=== PATIENT | female | born 1960 | race American Indian/Alaskan Native ===

== ENCOUNTER 2016-12-10 22:45 | Emergency (ER) | payer MEDICAID ==
[2016-12-10 23:28] VITALS: BP 130/81
--- NOTE | 2016-12-11 00:44 | EDM.PDOC ---
ED HPI GENERAL MEDICAL PROBLEM - General Chief Complaint: General Stated Complaint: TOOTHACHE Time Seen by Provider: 12/11/16 00:36 Source of Information: Reports: Patient History Limitations: Reports: No Limitations - History of Present Illness INITIAL COMMENTS - FREE TEXT/NARRATIVE: dental pain for 2 weeks, no relief with tylenol, and ibuprofen, has not attempted to see dentist, reporting they are always full, or she didn't have a car. 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, Other Medication(s) Tooth/Teeth Pain Score (Numeric/FACES): 5 - Related Data Allergies Allergy/AdvReac Type Severity Reaction Status Date / Time codeine Allergy Rash Verified 12/10/16 23:09 tramadol Allergy Headache Verified 12/10/16 23:09 Home Meds: Home Meds Furosemide [Lasix] 20 mg PO DAILY 06/18/14 [History] Rosuvastatin [Crestor] 20 mg PO DAILY 06/18/14 [History] metFORMIN [Glucophage] 500 mg PO BID 06/18/14 [History] Albuterol [Ventolin HFA] 8 gm INH Q6H 04/20/16 [History] Aspirin [Low Dose Aspirin EC] 81 mg PO DAILY 04/20/16 [History] Budesonide [Pulmicort] 0.5 mg NEB BIDRT 04/20/16 [History] DULoxetine [Cymbalta] 60 mg PO DAILY 04/20/16 [History] Ipratropium/Albuterol Sulfate [Iprat-Albut 0.5-3(2.5) MG/3 ML] 3 ml IH QID PRN 04/20/16 [History] Telmisartan 80 mg PO DAILY 04/20/16 [History] amLODIPine [Norvasc] 5 mg PO DAILY 04/20/16 [History] Past Medical History HEENT History: Reports: None, Hard of Hearing Cardiovascular History: Reports: High Cholesterol, Hypertension Respiratory History: Reports: COPD Other Respiratory History: on home O2 @ 2L/[place] Gastrointestinal History: Reports: None Genitourinary History: Reports: None [employer] History: Reports: None Musculoskeletal History: Reports: Osteoarthritis Neurological History: Reports: None Psychiatric History: Reports: None Endocrine/Metabolic History: Reports: Diabetes, Type II Hematologic History: Reports: None Immunologic History: Reports: None Oncologic (Cancer) History: Reports: None Dermatologic History: Reports: None - Infectious Disease History Infectious Disease History: Reports: None - Past Surgical History Head Surgeries/Procedures: Reports: None Female Surgical History: Reports: Hysterectomy Other Female Surgeries/Procedures: jan 27, 2015 Musculoskeletal Surgical History: Reports: Arthroscopic Knee Social & Family History - Family History Family Medical History: Noncontributory - Tobacco Use Smoking Status *Q: Current Every Day Smoker Years of Tobacco use: 38 Packs/Tins Daily: 1 Used Tobacco, but Quit: No Second Hand Smoke Exposure: Yes - Caffeine Use Caffeine Use: Reports: Coffee, Soda - Recreational Drug Use Recreational Drug Use: No - Living Situation & Occupation Living situation: Reports: with Family Occupation: Unemployed ED ROS GENERAL - Review of Systems Review Of Systems: ROS reveals no pertinent complaints other than HPI. ED EXAM, GENERAL - Physical Exam Exam: See Below Exam Limited By: No Limitations General Appearance: Alert, No Apparent Distress, Obese Eye Exam: Bilateral Eye: EOMI Ears: Normal External Exam Nose: Normal Inspection Throat/Mouth: No: Other (poor dentation, absence of upper teeth, lower front heavy decay, broken, left lower gum swollen anterior and laterally mild left lymphadenopathy) Neck: Normal Inspection Respiratory/Chest: No Respiratory Distress Cardiovascular: Normal Peripheral Pulses GI/Abdominal: Normal Bowel Sounds Extremities: Normal Inspection Course - Vital Signs Last Recorded V/S: Last Vital Signs Temp 98.8 F 12/10/16 23:27 Pulse 88 12/10/16 23:27 Resp 20 12/10/16 23:27 BP 130/81 12/10/16 23:27 Pulse Ox 90 L 12/10/16 23:27 - Orders/Labs/Meds Meds: Medications Discontinued Medications Generic Name Dose Route Start Last Admin Trade Name Freq PRN Reason Stop Dose Admin Clindamycin HCl Confirm 12/11/16 00:49 Cleocin Administered 12/11/16 00:50 Dose 300 mg .ROUTE .STK-MED ONE Lidocaine HCl Confirm 12/11/16 00:49 Xylocaine 2% Viscous Administered 12/11/16 00:50 Dose 15 ml .ROUTE .STK-MED ONE Departure - Departure Time of Disposition: 00:45 Disposition: Home, Self-Care 01 Condition: Good Clinical Impression: Dental abscess, Dental caries - Discharge Information Instructions: Dental Abscess, [id number] Referrals: John Trujillo MD [Primary Care Provider] - Forms: ED Department Discharge Additional Instructions: continue alternating tylenol and ibuprofen avoid extreme temperature foods and liquids to teeth viscous lidocaine applied to area with qtip every 2-4 hours as needed for dental pain stop amoxicillin clindamycin 150mg take 2 tablets 4 times daily for one week Follow Up with dentist
[2016-12-11] MEDS ORDERED: Lidocaine 2% Viscous Solution 15 ML Cup ONE (00:49)
[2016-12-11] MEDS ORDERED: Clindamycin HCl 150 MG Cap PO ONE (00:49)
[2016-12-11] MEDS ORDERED: Lidocaine 2% Viscous Solution 15 ML Cup PO ONE (00:49)
[2016-12-11] MEDS ORDERED: Clindamycin HCl 150 MG Cap ONE (00:49)
== END 2016-12-11 00:58 | disposition home or self-care (01) ==
LOC: DL.ED 22:45
DX: K04.7 Periapical abscess without sinus (principal); K02.9 Dental caries, unspecified; I10 Essential (primary) hypertension; E78.00 Pure hypercholesterolemia, unspecified; J44.9 Chronic obstructive pulmonary disease, unspecified; M19.90 Unspecified osteoarthritis, unspecified site; F17.210 Nicotine dependence, cigarettes, uncomplicated; E11.9 Type 2 diabetes mellitus without complications; Z90.710 Acquired absence of both cervix and uterus; Z98.890 Other specified postprocedural states; Z79.899 Other long term (current) drug therapy; Z88.5 Allergy status to narcotic agent; Z79.82 Long term (current) use of aspirin; Z79.84 Long term (current) use of oral hypoglycemic drugs
CPT/HCPCS: 99282; A9270-GY

== ENCOUNTER 2018-07-06 16:05 | Emergency (ER) | payer MEDICARE, MEDICAID ==
[2018-07-06 16:54] VITALS: BP 146/94
--- NOTE | 2018-07-06 17:07 | CR ---
Clinical history: 57-year-old female with COPD, cough and shortness of breath Interpretation: Chronic abnormal shaggy perihilar bronchitic pattern appears relatively improved (better inspiration) than on 04 April 2018 exam. Generalized air trapping but no focal lobar pneumonia, new atelectasis or collapse. Normal cardiac silhouette without cephalization of flow, new signs of alveolar edema or dependent pleural fluid accumulation. No new lung mass or hilar lymphadenopathy. Mild kyphosis and hypertrophic arthritic spondylosis dorsal spine. No pneumothorax or free subdiaphragmatic air. CONCLUSION: Chronic bronchitic pattern. No lobar pneumonia or signs of heart failure.
[2018-07-06 17:17] LABS: ANION GAP 15.6; CHLORIDE,CL 95 mmol/L (101-111); SODIUM,NA 136 mmol/L (135-145)
[2018-07-06] MEDS ORDERED: Ketorolac 30 MG/ML SDV IM ONE (17:32)
--- NOTE | 2018-07-06 17:55 | EDM.PDOC ---
Scribed by Vidya Shelton 07/06/18 0448 for Gwendolyn Garza NP ED HPI GENERAL MEDICAL PROBLEM - General Chief Complaint: Respiratory Problem Stated Complaint: VOICE CRACKLY Time Seen by Provider: 07/06/18 16:32 Source of Information: Reports: Patient, RN, RN Notes Reviewed History Limitations: Reports: No Limitations - History of Present Illness INITIAL COMMENTS - FREE TEXT/NARRATIVE: Patient presents to ER with complaint of cold. She states she has had a cough for 1 week. She is coughing up yellow/green phlegm. She has shortness of breath which is normal for her. She also has nasal/sinus congestion. She has had no fever, chills, chest pains, nausea, vomiting or diarrhea. Onset Date: 06/29/18 Duration: Getting Worse Location: Reports: Chest Quality: Reports: Ache Severity: Moderate Improves with: Reports: None Worsens with: Reports: None Associated Symptoms: Reports: No Other Symptoms - Related Data Allergies Allergy/AdvReac Type Severity Reaction Status Date / Time codeine Allergy Rash Verified 04/04/18 12:16 tramadol Allergy Headache Verified 04/04/18 12:16 Home Meds: Home Meds Furosemide [Lasix] 20 mg PO DAILY 06/18/14 [History] Rosuvastatin [Crestor] 20 mg PO BEDTIME 06/18/14 [History] metFORMIN [Glucophage] 1,000 mg PO BID 06/18/14 [History] Albuterol [Ventolin HFA] 8 gm INH Q4H 04/20/16 [History] Aspirin [Low Dose Aspirin EC] 81 mg PO DAILY 04/20/16 [History] Telmisartan 80 mg PO DAILY 04/20/16 [History] amLODIPine [Norvasc] 5 mg PO DAILY 04/20/16 [History] Fluticasone/Salmeterol [Advair 500-50] 2 puff INH BID 04/04/18 [History] Gabapentin [Neurontin] 1 tab PO TID 04/04/18 [History] Tiotropium [Spiriva Handihaler] 1 puff INH DAILY 04/04/18 [History] oxyCODONE HCl/Acetaminophen [Percocet 10-325 mg Tablet] 1 tab PO TID 04/04/18 [ History] Past Medical History HEENT History: Reports: None, Hard of Hearing Cardiovascular History: Reports: High Cholesterol, Hypertension Respiratory History: Reports: COPD Other Respiratory History: on home O2 @ 2L/NC Gastrointestinal History: Reports: None Genitourinary History: Reports: None 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 Musculoskeletal History: Reports: Osteoarthritis Neurological History: Reports: None Psychiatric History: Reports: None Endocrine/Metabolic History: Reports: Diabetes, Type II Hematologic History: Reports: None Immunologic History: Reports: None Oncologic (Cancer) History: Reports: None Dermatologic History: Reports: None - Infectious Disease History Infectious Disease History: Reports: None - Past Surgical History Head Surgeries/Procedures: Reports: None Female Surgical History: Reports: Hysterectomy Other Female Surgeries/Procedures: jan 27, 2015 Musculoskeletal Surgical History: Reports: Arthroscopic Knee Social & Family History - Family History Family Medical History: Noncontributory - Caffeine Use Caffeine Use: Reports: Coffee, Soda - Living Situation & Occupation Living situation: Reports: with Family Occupation: Unemployed ED ROS GENERAL - Review of Systems Review Of Systems: ROS reveals no pertinent complaints other than HPI. ED EXAM, GENERAL - Physical Exam Exam: See Below Exam Limited By: No Limitations General Appearance: Alert, WD/WN, No Apparent Distress Eye Exam: Bilateral Eye: EOMI, Normal Inspection, PERRL Ears: Normal External Exam, Normal Canal, Hearing Grossly Normal, Normal TMs Nose: Normal Inspection, Normal Mucosa, No Blood Throat/Mouth: Other (voice is raspy) Head: Atraumatic, Normocephalic Neck: Normal Inspection, Supple, Non-Tender, Full Range of Motion Respiratory/Chest: Crackles (bilateral) Cardiovascular: Normal Peripheral Pulses, Regular Rate, Rhythm, No Edema, No Gallop, No JVD, No Murmur, No Rub GI/Abdominal: Normal Bowel Sounds, Soft, Non-Tender, No Organomegaly, No Distention, No Abnormal Bruit, No Mass (Female) Exam: Deferred Rectal (Female) Exam: Deferred Back Exam: Other (pain in back) Extremities: Normal Inspection, Normal Range of Motion, Non-Tender, Normal Capillary Refill, No Pedal Edema Neurological: Alert, Oriented, CN II-XII Intact, Normal Cognition, Normal Gait, Normal Reflexes, No Motor/Sensory Deficits Psychiatric: Normal Affect, Normal Mood Skin Exam: Warm, Dry, Intact, Normal Color, No Rash Lymphatic: No Adenopathy Course - Vital Signs Last Recorded V/S: Last Vital Signs Temp 36.8 C 07/06/18 16:20 Pulse 105 H 07/06/18 16:20 Resp 22 H 07/06/18 16:20 BP 146/94 H 07/06/18 16:20 Pulse Ox 88 L 07/06/18 16:20 - Orders/Labs/Meds Labs: Laboratory Tests 07/06/18 07/06/18 Range/Units 16:55 16:55 WBC 7.4 (5.0-10.0) 10^3/uL RBC 6.86 H (4.2-5.4) 10^6/uL Hgb 19.1 H D (12.0-16.0) g/dL Hct 61.3 H (37.0-47.0) % MCV 89.4 (80-100) fL MCH 27.8 (27.0-34.0) pg MCHC 31.2 L (33.0-35.0) g/dL Plt Count 141 L (150-450) 10^3/uL Neut % (Auto) 67.1 (42.2-75.2) % Lymph % (Auto) 21.6 (20.5-50.1) % Piute % (Auto) 7.3 (2-8) % Eos % (Auto) 3.7 H (1.0-3.0) % Baso % (Auto) 0.3 (0.0-1.0) % Sodium 136 (135-145) mmol/L Potassium 3.6 (3.6-5.0) mmol/L Chloride 95 L (101-111) mmol/L Carbon Dioxide 29.0 (21.0-31.0) mmol/L Anion Gap 15.6 BUN 8 (7-18) mg/dL Creatinine 0.6 (0.6-1.3) mg/dL Est Cr Clr Drug Dosing 83.51 mL/min Estimated GFR (MDRD) > 60 BUN/Creatinine Ratio 13.33 Glucose 152 H (74-105) mg/dL Calcium 9.5 (8.4-10.2) mg/dl Total Bilirubin 0.7 (0.2-1.0) mg/dL AST 18 (10-42) IU/L ALT 14 (10-60) IU/L Alkaline Phosphatase 67 (42-121) IU/L Total Protein 7.9 (6.7-8.2) g/dl Albumin 4.0 (3.2-5.5) g/dl Globulin 3.9 Albumin/Globulin Ratio 1.03 Meds: Medications Discontinued Medications Generic Name Dose Route Start Last Admin Trade Name Ziq PRN Reason Stop Dose Admin Ketorolac Tromethamine 30 mg 07/06/18 17:32 Toradol IM 07/06/18 17:33 ONETIME ONE - Radiology Interpretation Free Text/Narrative:: Chest x-ray: Chronic bronchitic pattern. No lobar pneumonia or signs of heart failure. See rad report. Departure - Departure Time of Disposition: 17:25 Disposition: Home, Self-Care 01 Condition: Fair Clinical Impression: Acute exacerbation of chronic obstructive pulmonary disease (COPD), Laryngitis - Discharge Information *PRESCRIPTION DRUG MONITORING PROGRAM REVIEWED*: No *COPY OF PRESCRIPTION DRUG MONITORING REPORT IN PATIENT HANNAH: No Instructions: Chronic Obstructive Pulmonary Disease Exacerbation, [id number] , Cough, Adult, [id number], Chronic Obstructive Pulmonary Disease, Easy-to- Read, Upper Respiratory Infection, Adult, [id number], Laryngitis, [id number] Forms: ED Department Discharge Additional Instructions: RX: Azithromycin, prednisone, tessalon perles Follow up with your primary care facility next week I have read and agree with the documentation that has been completed regarding this visit. By signing this record, I attest that the documentation was completed in my physical presence and is an accurate record of the encounter.
== END 2018-07-06 18:02 | disposition home or self-care (01) ==
LOC: DL.ED 16:05
DX: J44.1 Chronic obstructive pulmonary disease with (acute) exacerbation (principal); J04.0 Acute laryngitis; I10 Essential (primary) hypertension; E11.9 Type 2 diabetes mellitus without complications; E78.00 Pure hypercholesterolemia, unspecified; Z79.84 Long term (current) use of oral hypoglycemic drugs; Z79.899 Other long term (current) drug therapy; Z79.82 Long term (current) use of aspirin; Z88.5 Allergy status to narcotic agent; Z88.6 Allergy status to analgesic agent
CPT/HCPCS: 36415; 71046; 80053; 85025; 96372; 99283; J1885

== ENCOUNTER 2019-06-10 13:58 | Emergency (ER) | payer MEDICARE, MEDICAID ==
[2019-06-10] MEDS ORDERED: Succinylcholine 200 MG/10 ML MDV IV ONE (13:59)
[2019-06-10] MEDS ORDERED: Etomidate 2 MG/ML 20 ML SDV IVPUSH ONE (13:59)
[2019-06-10] MEDS ORDERED: Rocuronium 100 MG/10 ML MDV IV ONE (13:59)
[2019-06-10] MEDS ORDERED: Sodium Chloride 0.9% 10 ML Syringe FLUSH PRN (14:30)
[2019-06-10 15:18] LABS: ANION GAP 14.7; CHLORIDE,CL 94 mmol/L (101-111); SODIUM,NA 134 mmol/L (135-145)
[2019-06-10 15:25] VITALS: BP 130/67; PULSE 108
[2019-06-10 15:38] LABS: BASE EXCESS ARTERIAL 5 mmol/L ((-2)-(+3)); BICARBONATE,ARTERIAL 34.7 mmol/L (22-26); O2 DELIVERY DEVICE NASAL CANNULA; O2 SATURATION ARTERIAL 82 % (95-100); PO2 ARTERIAL 54 mmHg (70-100)
[2019-06-10 15:41] LABS: PCO2 ARTERIAL 70 mmHg (35-45)
[2019-06-10] MEDS ORDERED: Furosemide 40 MG/4 ML VIAL IVPUSH ONE (17:14)
[2019-06-10] MEDS ORDERED: LORazepam 2 MG/ML SDV IVPUSH ONE (17:31)
--- NOTE | 2019-06-10 18:32 | EDM.PDOC ---
<Garrett Banks - Last Filed: 06/10/19 19:16> ED HPI GENERAL MEDICAL PROBLEM - General Chief Complaint: Respiratory Problem Stated Complaint: AMBULANCE Time Seen by Provider: 06/10/19 14:20 - Related Data Allergies Allergy/AdvReac Type Severity Reaction Status Date / Time codeine Allergy Rash Verified 06/10/19 14:36 tramadol Allergy Headache Verified 06/10/19 14:36 Home Meds: Home Meds Furosemide [Lasix] 20 mg PO DAILY 06/18/14 [History] Rosuvastatin [Crestor] 20 mg PO BEDTIME 06/18/14 [History] metFORMIN [Glucophage] 1,000 mg PO BID 06/18/14 [History] Albuterol [Ventolin HFA] 8 gm INH Q4H 04/20/16 [History] Aspirin [Low Dose Aspirin EC] 81 mg PO DAILY 04/20/16 [History] Telmisartan 80 mg PO DAILY 04/20/16 [History] amLODIPine [Norvasc] 5 mg PO DAILY 04/20/16 [History] Fluticasone/Salmeterol [Advair 500-50] 2 puff INH BID 04/04/18 [History] Gabapentin [Neurontin] 1 tab PO TID 04/04/18 [History] Tiotropium [Spiriva Handihaler] 1 puff INH DAILY 04/04/18 [History] oxyCODONE HCl/Acetaminophen [Percocet 10-325 mg Tablet] 1 tab PO TID 04/04/18 [ History] ED ROS GENERAL - Review of Systems Review Of Systems: Comprehensive ROS is negative, except as noted in HPI. ED EXAM, GENERAL - Physical Exam Exam: See Below Exam Limited By: No Limitations General Appearance: Lethargic Ears: Hearing Grossly Normal Throat/Mouth: Normal Voice, No Airway Compromise Head: Atraumatic Neck: Non-Tender, Full Range of Motion Respiratory/Chest: Decreased Breath Sounds, Crackles, Rales, Rhonchi, Wheezing, Other (laboured respiration) Cardiovascular: Regular Rate, Rhythm GI/Abdominal: Soft, Non-Tender Neurological: Confused Psychiatric: Flat Affect Skin Exam: Warm, Dry, Normal Color Lymphatic: No Adenopathy Course - Vital Signs Last Recorded V/S: Last Vital Signs Temp 98.6 F 06/10/19 16:00 Pulse 108 H 06/10/19 15:24 Resp 18 06/10/19 15:24 BP 130/67 06/10/19 15:24 Pulse Ox 88 L 06/10/19 15:24 - Orders/Labs/Meds Orders: Active Orders 24 hr Category Date Time Status Patient Status [ADT] Routine ADT 06/10/19 18:44 Active Cardiac Monitoring [RC] CONTINUOUS Care 06/10/19 18:46 Active EKG 12 Lead [EKG Documentation Completion] [RC] URGENT Care 06/10/19 14:33 Active Intake and Output [RC] QSHIFT Care 06/10/19 18:46 Active Oxygen Therapy [RC] PRN Care 06/10/19 18:44 Active Peripheral IV Care [RC] . DIRECTED Care 06/10/19 14:32 Active Pulse Oximetry [RC] CONTINUOUS Care 06/10/19 14:30 Active RT Aerosol Therapy [RC] ASDIRECTED Care 06/10/19 18:48 Active RT Aerosol Therapy [RC] ASDIRECTED Care 06/10/19 20:08 Active Up ad Shauna [RC] ASDIRECTED Care 06/10/19 18:43 Active VTE/DVT Education [RC] PER UNIT ROUTINE Care 06/10/19 18:44 Active Vital Signs [RC] Q4H Care 06/10/19 18:44 Active CULTURE BLOOD [BC] Stat Lab 06/10/19 14:43 Received CULTURE BLOOD [BC] Stat Lab 06/10/19 14:43 Results Blood Culture x2 Reflex Set [OM.PC] Stat Oth 06/10/19 14:33 Ordered Peripheral IV Insertion Adult [OM.PC] Urgent Oth 06/10/19 14:30 Ordered Resuscitation Status Routine Resus Stat 06/10/19 18:43 Ordered Labs: Laboratory Tests 06/10/19 06/10/19 06/10/19 Range/Units 14:43 14:43 14:43 WBC 10.2 H (5.0-10.0) 10^3/uL RBC 6.23 H (4.2-5.4) 10^6/uL Hgb 18.4 H (12.0-16.0) g/dL Hct 58.5 H (37.0-47.0) % MCV 93.9 (80-100) fL MCH 29.5 (27.0-34.0) pg MCHC 31.5 L (33.0-35.0) g/dL Plt Count 131 L (150-450) 10^3/uL Neut % (Auto) 79.5 H (42.2-75.2) % Lymph % (Auto) 12.4 L (20.5-50.1) % [place] % (Auto) 6.1 (2-8) % Eos % (Auto) 1.8 (1.0-3.0) % Baso % (Auto) 0.2 (0.0-1.0) % D-Dimer, Quantitative < 100 (0-400) ng/mL ABG pH (7.35-7.45) ABG pCO2 (35-45) mmHg ABG pO2 (70-100) mmHg ABG HCO3 (22-26) mmol/L ABG O2 Saturation (95-100) % ABG Base Excess ((-2)-(+3)) mmol/L Jayant Test O2 Delivery Device Sodium 134 L (135-145) mmol/L Potassium 5.7 H D (3.6-5.0) mmol/L Chloride 94 L (101-111) mmol/L Carbon Dioxide 31.0 (21.0-31.0) mmol/L Anion Gap 14.7 BUN 22 H (7-18) mg/dL Creatinine 0.9 (0.6-1.3) mg/dL Est Cr Clr Drug Dosing TNP Estimated GFR (MDRD) > 60 BUN/Creatinine Ratio 24.44 Glucose 120 H (74-105) mg/dL Lactic Acid (0.5-2.0) mmol/L Calcium 8.8 (8.4-10.2) mg/dl Total Bilirubin 1.2 H (0.2-1.0) mg/dL AST 12 (10-42) IU/L ALT 9 L (10-60) IU/L Alkaline Phosphatase 62 (42-121) IU/L Ammonia (11-35) umol/L Troponin I < 0.02 (0.00-0.02) ng/ml B-Natriuretic Peptide 13 (0-100) pg/ml Total Protein 7.7 (6.7-8.2) g/dl Albumin 4.3 (3.2-5.5) g/dl Globulin 3.4 Albumin/Globulin Ratio 1.26 06/10/19 06/10/19 06/10/19 Range/Units 14:43 14:43 15:35 WBC (5.0-10.0) 10^3/uL RBC (4.2-5.4) 10^6/uL Hgb (12.0-16.0) g/dL Hct (37.0-47.0) % MCV (80-100) fL MCH (27.0-34.0) pg MCHC (33.0-35.0) g/dL Plt Count (150-450) 10^3/uL Neut % (Auto) (42.2-75.2) % Lymph % (Auto) (20.5-50.1) % [place] % (Auto) (2-8) % Eos % (Auto) (1.0-3.0) % Baso % (Auto) (0.0-1.0) % D-Dimer, Quantitative (0-400) ng/mL ABG pH 7.32 L (7.35-7.45) ABG pCO2 70 H* (35-45) mmHg ABG pO2 54 L (70-100) mmHg ABG HCO3 34.7 H (22-26) mmol/L ABG O2 Saturation 82 L (95-100) % ABG Base Excess 5 H ((-2)-(+3)) mmol/L Jayant Test O2 Delivery Device Nasal cannula Sodium (135-145) mmol/L Potassium (3.6-5.0) mmol/L Chloride (101-111) mmol/L Carbon Dioxide (21.0-31.0) mmol/L Anion Gap BUN (7-18) mg/dL Creatinine (0.6-1.3) mg/dL Est Cr Clr Drug Dosing Estimated GFR (MDRD) BUN/Creatinine Ratio Glucose (74-105) mg/dL Lactic Acid 1.2 (0.5-2.0) mmol/L Calcium (8.4-10.2) mg/dl Total Bilirubin (0.2-1.0) mg/dL AST (10-42) IU/L ALT (10-60) IU/L Alkaline Phosphatase (42-121) IU/L Ammonia 35 (11-35) umol/L Troponin I (0.00-0.02) ng/ml B-Natriuretic Peptide (0-100) pg/ml Total Protein (6.7-8.2) g/dl Albumin (3.2-5.5) g/dl Globulin Albumin/Globulin Ratio 06/10/19 Range/Units 19:39 WBC (5.0-10.0) 10^3/uL RBC (4.2-5.4) 10^6/uL Hgb (12.0-16.0) g/dL Hct (37.0-47.0) % MCV (80-100) fL MCH (27.0-34.0) pg MCHC (33.0-35.0) g/dL Plt Count (150-450) 10^3/uL Neut % (Auto) (42.2-75.2) % Lymph % (Auto) (20.5-50.1) % [place] % (Auto) (2-8) % Eos % (Auto) (1.0-3.0) % Baso % (Auto) (0.0-1.0) % D-Dimer, Quantitative (0-400) ng/mL ABG pH 7.25 L (7.35-7.45) ABG pCO2 84 H* (35-45) mmHg ABG pO2 80 (70-100) mmHg ABG HCO3 35.4 H (22-26) mmol/L ABG O2 Saturation 95 (95-100) % ABG Base Excess 4 H ((-2)-(+3)) mmol/L Jayant Test pos O2 Delivery Device Ventilator Sodium (135-145) mmol/L Potassium (3.6-5.0) mmol/L Chloride (101-111) mmol/L Carbon Dioxide (21.0-31.0) mmol/L Anion Gap BUN (7-18) mg/dL Creatinine (0.6-1.3) mg/dL Est Cr Clr Drug Dosing Estimated GFR (MDRD) BUN/Creatinine Ratio Glucose (74-105) mg/dL Lactic Acid (0.5-2.0) mmol/L Calcium (8.4-10.2) mg/dl Total Bilirubin (0.2-1.0) mg/dL AST (10-42) IU/L ALT (10-60) IU/L Alkaline Phosphatase (42-121) IU/L Ammonia (11-35) umol/L Troponin I (0.00-0.02) ng/ml B-Natriuretic Peptide (0-100) pg/ml Total Protein (6.7-8.2) g/dl Albumin (3.2-5.5) g/dl Globulin Albumin/Globulin Ratio Meds: Medications Discontinued Medications Generic Name Dose Route Start Last Admin Trade Name Freq PRN Reason Stop Dose Admin Acetaminophen 650 mg 06/10/19 18:43 Tylenol PO Q4H PRN Pain (Mild 1-3)/fever Albuterol 2.5 mg 06/10/19 18:43 Proventil Neb Soln NEB Q2H PRN shortness of breath/wheezing Albuterol Confirm 06/10/19 19:51 Proventil Neb Soln Administered 06/10/19 19:52 Dose 20 mg .ROUTE .STK-MED ONE Albuterol 20 mg 06/10/19 20:07 06/10/19 20:36 Proventil Neb Soln NEB 06/10/19 20:08 20 mg ONETIME ONE Administration Albuterol/Ipratropium 3 ml 06/10/19 18:45 Duoneb 3.0-0.5 Mg/3 Ml NEB Q4H ENDY Furosemide 40 mg 06/10/19 17:14 06/10/19 17:35 Lasix IVPUSH 06/10/19 17:15 40 mg NOW ONE Administration Heparin Sodium (Porcine) 5,000 units 06/10/19 22:00 Heparin Sodium SUBCUT Q8HR ENDY Azithromycin 500 mg/ Sodium 250 mls @ 250 mls/hr 06/10/19 20:00 Chloride IV Q24H ENDY Ceftriaxone Sodium 1 gm/ 50 mls @ 50 mls/hr 06/10/19 19:00 Sodium Chloride IV Q24H ENDY Lorazepam 1 mg 06/10/19 17:31 06/10/19 17:36 Ativan IVPUSH 06/10/19 17:32 1 mg ONETIME ONE Administration Ondansetron HCl 4 mg 06/10/19 18:43 Zofran IVPUSH Q6H PRN Nausea/Vomiting Sodium Chloride 10 ml 06/10/19 14:30 06/10/19 16:05 Saline Flush FLUSH 10 ml ASDIRECTED PRN Administration Keep Vein Open - Re-Assessments/Exams Free Text/Narrative Re-Assessment/Exam: 06/10/19 19:[address] Rebolledo @ [facility] who kindly accepted pt. Departure - Departure Disposition: DC/Tfer to [facility] 02 Clinical Impression: Acute exacerbation of chronic obstructive pulmonary disease (COPD), Hyperkalemia, Pulmonary edema with congestive heart failure, Respiratory failure requiring intubation, Acute respiratory failure with hypoxia and hypercarbia Congestive heart failure Qualifiers: Heart failure type: combined systolic and diastolic Heart failure chronicity: chronic Qualified Code(s): I50.42 - Chronic combined systolic (congestive) and diastolic (congestive) heart failure - Discharge Information Referrals: PCP,Unobtain [Primary Care Provider] - Forms: Interfacility Transfer [facility]ZA Sepsis Event Note - Focused Exam Date Exam was Performed: 06/10/19 Time Exam was Performed: 19:16 - My Orders Last 24 Hours: My Active Orders 06/10/19 14:30 Pulse Oximetry [RC] CONTINUOUS Peripheral IV Insertion Adult [OM.PC] Urgent 06/10/19 14:32 Peripheral IV Care [RC] . DIRECTED 06/10/19 14:33 EKG 12 Lead [EKG Documentation Completion] [RC] URGENT Blood Culture x2 Reflex Set [OM.PC] Stat 06/10/19 14:43 CULTURE BLOOD [BC] Stat CULTURE BLOOD [BC] Stat - Assessment/Plan Last 24 Hours: My Active Orders 06/10/19 14:30 Pulse Oximetry [RC] CONTINUOUS Peripheral IV Insertion Adult [OM.PC] Urgent 06/10/19 14:32 Peripheral IV Care [RC] . DIRECTED 06/10/19 14:33 EKG 12 Lead [EKG Documentation Completion] [RC] URGENT Blood Culture x2 Reflex Set [OM.PC] Stat 06/10/19 14:43 CULTURE BLOOD [BC] Stat CULTURE BLOOD [BC] Stat [facility] Last Filed: 06/11/19 08:44> ED HPI GENERAL MEDICAL PROBLEM - General Source of Information: Reports: EMS, RN History Limitations: Reports: Altered Mental Status - History of Present Illness INITIAL COMMENTS - FREE TEXT/NARRATIVE: 58 year female who presents to the ER with EMS for sats of 63% on 3L NC. Patient was confused and a poor historian. Patient was given a duoneb enroute to the ER and her oxygen saturation was 72%. She is on 90 % on 2L NC in the ER. She denies any fever, N/V, chest pain at this time. Cough is productive with yellow sputum noted. Patient smokes about 2.5 packs/day. Past Medical History HEENT History: Reports: None, Hard of Hearing Cardiovascular History: Reports: High Cholesterol, Hypertension Respiratory History: Reports: COPD Other Respiratory History: on home O2 @ 2L/NC Gastrointestinal History: Reports: None Genitourinary History: Reports: None SENIOR EXAMINER History: Reports: None Musculoskeletal History: Reports: Osteoarthritis Neurological History: Reports: None Psychiatric History: Reports: None Endocrine/Metabolic History: Reports: Diabetes, Type II Hematologic History: Reports: None Immunologic History: Reports: None Oncologic (Cancer) History: Reports: None Dermatologic History: Reports: None - Infectious Disease History Infectious Disease History: Reports: None - Past Surgical History Head Surgeries/Procedures: Reports: None Female Surgical History: Reports: Hysterectomy Other Female Surgeries/Procedures: jan 27, 2015 Musculoskeletal Surgical History: Reports: Arthroscopic Knee Social & Family History - Family History Family Medical History: Noncontributory - Tobacco Use Smoking Status *Q: Current Every Day Smoker Years of Tobacco use: 40 Packs/Tins Daily: 2.5 - Caffeine Use Caffeine Use: Reports: Coffee, Soda - Recreational Drug Use Recreational Drug Use: No - Living Situation & Occupation Living situation: Reports: with Family Occupation: Unemployed ED ROS GENERAL - Review of Systems Review Of Systems: Comprehensive ROS is negative, except as noted in HPI. ED EXAM, GENERAL - Physical Exam Exam: See Below Exam Limited By: Altered Mental Status Eye Exam: Bilateral Eye: Normal Inspection Ears: Normal External Exam, Normal Canal, Hearing Grossly Normal, Normal TMs Nose: Normal Inspection, Normal Mucosa, No Blood Throat/Mouth: Normal Oropharynx, Normal Voice, No Airway Compromise Head: Atraumatic Neck: Normal Inspection, Non-Tender, Full Range of Motion Respiratory/Chest: Decreased Breath Sounds, Other Cardiovascular: Regular Rate, Rhythm, Other (1 + non pitting to BLE) GI/Abdominal: Soft, Non-Tender Extremities: Normal Range of Motion, Non-Tender Neurological: Confused Psychiatric: Anxious, Flat Affect Skin Exam: Dry, Intact Lymphatic: No Adenopathy Course - Radiology Interpretation Free Text/Narrative:: PROCEDURE INFORMATION: Exam: XR Chest, 2 Views Exam date and time: 06/10/2019 2:46 PM Age: 58 years old Clinical indication: Shortness of breath; Additional info: SOB TECHNIQUE: Imaging protocol: XR of the chest Views: 2 views. COMPARISON: CR Chest 2V 07/06/2018 4:57 PM FINDINGS: Lungs: There is moderate nonspecific prominence of the pulmonary vasculature. There is prominence of the interstitial markings diffusely in both lung bases. Pleural space: There are no pleural effusions present. Heart/Mediastinum: The heart demonstrates moderate diffuse enlargement. Bones/joints: Unremarkable IMPRESSION: Cardiomegaly and pulmonary vascular prominence consistent with volume overload or congestive heart failure. Thank you for allowing us to participate in the care of your patient. - Re-Assessments/Exams Free Text/Narrative Re-Assessment/Exam: Reviewed labs, chest xray and EKG results with patient's family. Lasix 40 mg administered. Care of patient was discussed with Hospitalist continuous washer operator Dr. Quintero who was accepted patient for inpatient admission. Patient was very anxious and was constantly pulling off the BiPAP. She was also requesting discharge. It was noted that patient will desat into the 80's once she removed the BIPAP or oxygen by nasal cannula. . Care of this patient was transferred over to Dr. Banks, provider on oncoming shift. Departure - Departure Time of Disposition: 18:16 Condition: Poor Sepsis Event Note - Evaluation Sepsis Screening Result: Possible Severe Sepsis Risk - Focused Exam Date Exam was Performed: 06/11/19 Time Exam was Performed: 08:29
[2019-06-10] MEDS ORDERED: Albuterol 0.083% 2.5 MG/3 ML Neb Soln NEB PRN (18:43)
[2019-06-10] MEDS ORDERED: Ondansetron 4 MG/2 ML SDV IVPUSH PRN (18:43)
[2019-06-10] MEDS ORDERED: Acetaminophen 325 MG Tab PO PRN (18:43)
[2019-06-10] MEDS ORDERED: Albuterol/Ipratropium 3.0-0.5 MG/3 ML Neb Soln NEB SCH (18:45)
[2019-06-10] MEDS ORDERED: cefTRIAXone 1 GM in Sodium Chloride 0.9% 50 ML IV SCH (19:00)
[2019-06-10] MEDS ORDERED: Albuterol 0.083% 2.5 MG/3 ML Neb Soln ONE (19:51)
[2019-06-10] MEDS ORDERED: Azithromycin 500 MG in Sodium Chloride 0.9% 250 ML IV SCH (20:00)
[2019-06-10] MEDS ORDERED: Albuterol 0.083% 2.5 MG/3 ML Neb Soln NEB ONE (20:07)
[2019-06-10 20:23] LABS: BASE EXCESS ARTERIAL 4 mmol/L ((-2)-(+3)); BICARBONATE,ARTERIAL 35.4 mmol/L (22-26); O2 DELIVERY DEVICE VENTILATOR; O2 SATURATION ARTERIAL 95 % (95-100); PO2 ARTERIAL 80 mmHg (70-100)
[2019-06-10 20:30] LABS: PCO2 ARTERIAL 84 mmHg (35-45)
[2019-06-10 20:31] LABS: ALLEN TEST pos
[2019-06-10] MEDS ORDERED: Heparin Sodium 5,000 Units/ML Vial SUBCUT SCH (22:00)
== END 2019-06-10 20:22 ==
LOC: DL.ED 13:58 → DL.MS 18:44 → UNDOADMIN 18:44
DX: I11.0 Hypertensive heart disease with heart failure (principal); I50.9 Heart failure, unspecified; E87.5 Hyperkalemia; J96.91 Respiratory failure, unspecified with hypoxia; J96.92 Respiratory failure, unspecified with hypercapnia; J44.1 Chronic obstructive pulmonary disease with (acute) exacerbation; E11.9 Type 2 diabetes mellitus without complications; F17.210 Nicotine dependence, cigarettes, uncomplicated
CPT/HCPCS: 31500; 36415; 36600; 51702; 71045; 71046; 80053; 82140; 82803; 83605; 83880; 84484; 85025; 85379; 87040; 87804; 93005; 94644; 96374; 96375; 99285; J0330; J1940; J2060; J3490; J7613-GY

== ENCOUNTER 2020-09-29 12:04 | Emergency (ER) | payer MEDICAID, MEDICARE ==
[2020-09-29] MEDS ORDERED: Albuterol/Ipratropium 3.0-0.5 MG/3 ML Neb Soln NEB ONE (12:51)
--- NOTE | 2020-09-29 12:54 | EDM.PDOC ---
ED HPI GENERAL MEDICAL PROBLEM - General Chief Complaint: Respiratory Problem Stated Complaint: BY AMBULANCE Time Seen by Provider: 09/29/20 12:40 Source of Information: Reports: Patient, EMS, EMS Notes Reviewed, RN, RN Notes Reviewed History Limitations: Reports: No Limitations - History of Present Illness INITIAL COMMENTS - FREE TEXT/NARRATIVE: Kadie is a 59 y/o female with a history of DM II, CHF, HTN, and COPD on 3L of O2 at baseline who presents to the ED via [facility] with complaints of possible hallucination last night. The patient states she was speaking with her sister last night and her sister felt as if she was "..seeing things." The patient denies recent illness, fever, shaking chills, vision changes, sore throat, chest pain, palpitations, nausea, vomiting, or diarrhea. She does attest to a chronic dry cough which has not worsened in severity or frequency. She has not required an increase in oxygen requirements or rescue inhalers. She states she feels alert and oriented. The patient attests to smoking 1/2 pack of cigarettes per day; she denies alcohol or recreational drug use. - Related Data Allergies Allergy/AdvReac Type Severity Reaction Status Date / Time codeine Allergy Rash Verified 09/29/20 13:06 tramadol Allergy Headache Verified 09/29/20 13:06 Home Meds: Home Meds Furosemide [Lasix] 20 mg PO DAILY 06/18/14 [History] Rosuvastatin [Crestor] 20 mg PO BEDTIME 06/18/14 [History] metFORMIN [Glucophage] 1,000 mg PO BID 06/18/14 [History] Albuterol [Ventolin HFA] 8 gm INH Q4H 04/20/16 [History] Aspirin [Low Dose Aspirin EC] 81 mg PO DAILY 04/20/16 [History] Telmisartan 80 mg PO DAILY 04/20/16 [History] amLODIPine [Norvasc] 5 mg PO DAILY 04/20/16 [History] Fluticasone/Salmeterol [Advair 500-50] 2 puff INH BID 04/04/18 [History] Gabapentin [Neurontin] 1 tab PO TID 04/04/18 [History] Tiotropium [Spiriva Handihaler] 1 puff INH DAILY 04/04/18 [History] oxyCODONE HCl/Acetaminophen [Percocet 10-325 mg Tablet] 1 tab PO TID 04/04/18 [History] Past Medical History - Past Health History Medical/Surgical History: Denies Medical/Surgical History HEENT History: Reports: Hard of Hearing Cardiovascular History: Reports: High Cholesterol, Hypertension Respiratory History: Reports: COPD Other Respiratory History: on home O2 @ 2L/NC Gastrointestinal History: Reports: None Genitourinary History: Reports: None 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 Musculoskeletal History: Reports: Osteoarthritis Neurological History: Reports: None Psychiatric History: Reports: None Endocrine/Metabolic History: Reports: Diabetes, Type II Hematologic History: Reports: None Immunologic History: Reports: None Oncologic (Cancer) History: Reports: None Dermatologic History: Reports: None - Infectious Disease History Infectious Disease History: Reports: None - Past Surgical History Head Surgeries/Procedures: Reports: None Female Surgical History: Reports: Hysterectomy Other Female Surgeries/Procedures: jan 27, 2015 Musculoskeletal Surgical History: Reports: Arthroscopic Knee Other Musculoskeletal Surgeries/Procedures:: bilateral Social & Family History - Family History Family Medical History: No Pertinent Family History - Tobacco Use Tobacco Use Status *Q: Current Every Day Tobacco User Years of Tobacco use: 40 Packs/Tins Daily: 1 - Caffeine Use Caffeine Use: Reports: None, Coffee, Energy Drinks, Soda, Tea, Other - Recreational Drug Use Recreational Drug Use: No - Living Situation & Occupation Living situation: Reports: with Family Occupation: Unemployed ED ROS GENERAL - Review of Systems Review Of Systems: Comprehensive ROS is negative, except as noted in HPI. ED EXAM, GENERAL - Physical Exam Exam: See Below Exam Limited By: No Limitations General Appearance: Alert, No Apparent Distress Eye Exam: Bilateral Eye: EOMI, Normal Inspection, PERRL (3mm) Ears: Normal External Exam, Normal Canal, Hearing Grossly Normal. 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 No: Crackles, Rales, Rhonchi, Stridor Cardiovascular: Normal Peripheral Pulses, Regular Rate, Rhythm, No Edema, No Gallop, No JVD, No Murmur, No Rub, Tachycardia Peripheral Pulses: 2+: Radial (L), Radial (R) GI/Abdominal: Normal Bowel Sounds, Non-Tender, No Distention, No Mass, Pelvis Stable (Female) Exam: Deferred Rectal (Female) Exam: Deferred Back Exam: Normal Inspection, Full Range of Motion. No: CVA Tenderness (L), CVA Tenderness (R) Extremities: Normal Inspection, Normal Range of Motion, Non-Tender, Normal Capillary Refill, No Pedal Edema Neurological: Alert, Oriented, CN II-XII Intact, Normal Cognition, Normal Gait, No Motor/Sensory Deficits Psychiatric: Normal Affect, Normal Mood Skin Exam: Warm, Dry, Intact, Normal Color, No Rash. No: Ecchymosis, Erythema, Mottled, Pallor, Petechiae #1 Interpretation EKG Date: 09/29/20 Time: 13:15 Rhythm: NSR Rate (Beats/Min): 88 [place]: LAD-Left [place] Deviation P-Wave: Present QRS: Normal ST-T: Normal QT: Normal [place]/PQ Interval: 0.154 Comparison: No Change EKG Interpretation Comments: NSR; LAD; No evidence of acute myocardial ischemia Course - Vital Signs Last Recorded V/S: Last Vital Signs Temp 97.7 F 09/29/20 16:29 Pulse 81 09/29/20 16:29 Resp 20 09/29/20 16:29 BP 120/52 L 09/29/20 16:29 Pulse Ox 91 L 09/29/20 16:29 - Orders/Labs/Meds Labs: Laboratory Tests 09/29/20 09/29/20 09/29/20 Range/Units 12:55 12:55 13:06 WBC 6.6 (5.0-10.0) 10^3/uL RBC 6.24 H (4.2-5.4) 10^6/uL Hgb 18.3 H (12.0-16.0) g/dL Hct 55.3 H (37.0-47.0) % MCV 88.6 D (80-100) fL MCH 29.3 (27.0-34.0) pg MCHC 33.1 (33.0-35.0) g/dL Plt Count 165 (150-450) 10^3/uL Neut % (Auto) 56.2 (42.2-75.2) % Lymph % (Auto) 31.8 (20.5-50.1) % [place] % (Auto) 9.2 H (2-8) % Eos % (Auto) 2.3 (1.0-3.0) % Baso % (Auto) 0.5 (0.0-1.0) % PT (9.0-12.0) SEC INR (0.9-1.2) APTT (22.0-34.0) SEC Sodium (136-145) mmol/L Potassium (3.5-5.1) mmol/L Chloride (98-107) mmol/L Carbon Dioxide (21-32) mmol/L Anion Gap (7-13) mEq/L BUN (7-18) mg/dL Creatinine (0.55-1.02) mg/dL Est Cr Clr Drug Dosing mL/min Estimated GFR (MDRD) BUN/Creatinine Ratio (No establ ref range) Glucose (70-99) mg/dL Lactic Acid (0.4-2.0) mmol/L Calcium (8.5-10.1) mg/dL Total Bilirubin (0.2-1.0) mg/dL AST (15-37) U/L ALT (14-59) U/L Alkaline Phosphatase (46-116) U/L Troponin I (0.000-0.056) ng/mL B-Natriuretic Peptide (0-100) pg/ml Total Protein (6.4-8.2) g/dL Albumin (3.4-5.0) g/dL Globulin Albumin/Globulin Ratio Urine Color Yellow (YELLOW) Urine Appearance Slightly cloudy (CLEAR) Urine pH 5.5 (5.0-9.0) Ur Specific [place] 1.025 (1.005-1.030) Urine Protein Negative (NEGATIVE) Urine Glucose (UA) Negative (NEGATIVE) Urine Ketones 15 H (NEGATIVE) Urine Occult Blood Trace-intact H (NEGATIVE) Urine Nitrite Negative (NEGATIVE) Urine Bilirubin Small H (NEGATIVE) Urine Urobilinogen 0.2 (0.2-1.0) mg/dL Ur Leukocyte Esterase Negative (NEGATIVE) Urine RBC 0-5 /HPF Urine WBC 0-5 (0-5/HPF) /HPF Ur Epithelial Cells Few (NOT SEEN) /HPF Urine Bacteria Few (0-FEW/HPF) /HPF Urine Opiates Screen Positive H (NEGATIVE) Ur Oxycodone Screen Positive H (NEGATIVE) Urine Methadone Screen Negative (NEGATIVE) Ur Barbiturates Screen Negative (NEGATIVE) U Tricyclic Antidepress Negative (NEGATIVE) Ur Phencyclidine Scrn Negative (NEGATIVE) Ur Amphetamine Screen Positive H (NEGATIVE) U Methamphetamines Scrn Positive H (NEGATIVE) Urine MDMA Screen Positive H (NEGATIVE) U Benzodiazepines Scrn Positive H (NEGATIVE) Urine Cocaine Screen Negative (NEGATIVE) U Marijuana (THC) Screen Negative (NEGATIVE) Ethyl Alcohol (0) mg/dL 09/29/20 09/29/20 09/29/20 Range/Units 13:06 13:06 13:06 WBC (5.0-10.0) 10^3/uL RBC (4.2-5.4) 10^6/uL Hgb (12.0-16.0) g/dL Hct (37.0-47.0) % MCV (80-100) fL MCH (27.0-34.0) pg MCHC (33.0-35.0) g/dL Plt Count (150-450) 10^3/uL Neut % (Auto) (42.2-75.2) % Lymph % (Auto) (20.5-50.1) % [place] % (Auto) (2-8) % Eos % (Auto) (1.0-3.0) % Baso % (Auto) (0.0-1.0) % PT (9.0-12.0) SEC INR (0.9-1.2) APTT (22.0-34.0) SEC Sodium 140 (136-145) mmol/L Potassium 3.3 L (3.5-5.1) mmol/L Chloride 98 (98-107) mmol/L Carbon Dioxide 33 H (21-32) mmol/L Anion Gap 12.3 (7-13) mEq/L BUN 9 (7-18) mg/dL Creatinine 0.92 (0.55-1.02) mg/dL Est Cr Clr Drug Dosing 53.12 mL/min Estimated GFR (MDRD) > 60 BUN/Creatinine Ratio 9.8 (No establ ref range) Glucose 167 H (70-99) mg/dL Lactic Acid 1.1 (0.4-2.0) mmol/L Calcium 8.6 (8.5-10.1) mg/dL Total Bilirubin 0.5 (0.2-1.0) mg/dL AST 15 (15-37) U/L ALT 22 (14-59) U/L Alkaline Phosphatase 69 (46-116) U/L Troponin I < 0.017 (0.000-0.056) ng/mL B-Natriuretic Peptide (0-100) pg/ml Total Protein 7.3 (6.4-8.2) g/dL Albumin 3.6 (3.4-5.0) g/dL Globulin 3.7 Albumin/Globulin Ratio 1.0 Urine Color (YELLOW) Urine Appearance (CLEAR) Urine pH (5.0-9.0) Ur Specific [place] (1.005-1.030) Urine Protein (NEGATIVE) Urine Glucose (UA) (NEGATIVE) Urine Ketones (NEGATIVE) Urine Occult Blood (NEGATIVE) Urine Nitrite (NEGATIVE) Urine Bilirubin (NEGATIVE) Urine Urobilinogen (0.2-1.0) mg/dL Ur Leukocyte Esterase (NEGATIVE) Urine RBC /HPF Urine WBC (0-5/HPF) /HPF Ur Epithelial Cells (NOT SEEN) /HPF Urine Bacteria (0-FEW/HPF) /HPF Urine Opiates Screen (NEGATIVE) Ur Oxycodone Screen (NEGATIVE) Urine Methadone Screen (NEGATIVE) Ur Barbiturates Screen (NEGATIVE) U Tricyclic Antidepress (NEGATIVE) Ur Phencyclidine Scrn (NEGATIVE) Ur Amphetamine Screen (NEGATIVE) U Methamphetamines Scrn (NEGATIVE) Urine MDMA Screen (NEGATIVE) U Benzodiazepines Scrn (NEGATIVE) Urine Cocaine Screen (NEGATIVE) U Marijuana (THC) Screen (NEGATIVE) Ethyl Alcohol < 3 (0) mg/dL 09/29/20 09/29/20 Range/Units 13:06 13:06 WBC (5.0-10.0) 10^3/uL RBC (4.2-5.4) 10^6/uL Hgb (12.0-16.0) g/dL Hct (37.0-47.0) % MCV (80-100) fL MCH (27.0-34.0) pg MCHC (33.0-35.0) g/dL Plt Count (150-450) 10^3/uL Neut % (Auto) (42.2-75.2) % Lymph % (Auto) (20.5-50.1) % [place] % (Auto) (2-8) % Eos % (Auto) (1.0-3.0) % Baso % (Auto) (0.0-1.0) % PT 47.5 H (9.0-12.0) SEC INR 4.9 H (0.9-1.2) APTT 48.3 H (22.0-34.0) SEC Sodium (136-145) mmol/L Potassium (3.5-5.1) mmol/L Chloride (98-107) mmol/L Carbon Dioxide (21-32) mmol/L Anion Gap (7-13) mEq/L BUN (7-18) mg/dL Creatinine (0.55-1.02) mg/dL Est Cr Clr Drug Dosing mL/min Estimated GFR (MDRD) BUN/Creatinine Ratio (No establ ref range) Glucose (70-99) mg/dL Lactic Acid (0.4-2.0) mmol/L Calcium (8.5-10.1) mg/dL Total Bilirubin (0.2-1.0) mg/dL AST (15-37) U/L ALT (14-59) U/L Alkaline Phosphatase (46-116) U/L Troponin I (0.000-0.056) ng/mL B-Natriuretic Peptide 30 (0-100) pg/ml Total Protein (6.4-8.2) g/dL Albumin (3.4-5.0) g/dL Globulin Albumin/Globulin Ratio Urine Color (YELLOW) Urine Appearance (CLEAR) Urine pH (5.0-9.0) Ur Specific [place] (1.005-1.030) Urine Protein (NEGATIVE) Urine Glucose (UA) (NEGATIVE) Urine Ketones (NEGATIVE) Urine Occult Blood (NEGATIVE) Urine Nitrite (NEGATIVE) Urine Bilirubin (NEGATIVE) Urine Urobilinogen (0.2-1.0) mg/dL Ur Leukocyte Esterase (NEGATIVE) Urine RBC /HPF Urine WBC (0-5/HPF) /HPF Ur Epithelial Cells (NOT SEEN) /HPF Urine Bacteria (0-FEW/HPF) /HPF Urine Opiates Screen (NEGATIVE) Ur Oxycodone Screen (NEGATIVE) Urine Methadone Screen (NEGATIVE) Ur Barbiturates Screen (NEGATIVE) U Tricyclic Antidepress (NEGATIVE) Ur Phencyclidine Scrn (NEGATIVE) Ur Amphetamine Screen (NEGATIVE) U Methamphetamines Scrn (NEGATIVE) Urine MDMA Screen (NEGATIVE) U Benzodiazepines Scrn (NEGATIVE) Urine Cocaine Screen (NEGATIVE) U Marijuana (THC) Screen (NEGATIVE) Ethyl Alcohol (0) mg/dL Meds: Medications Discontinued Medications Generic Name Dose Route Start Last Admin Trade Name Freq PRN Reason Stop Dose Admin Albuterol/Ipratropium 3 ml 09/29/20 12:51 09/29/20 13:27 Albuterol/Ipratropium 3.0-0.5 Mg/3 Ml Neb Soln NEB 09/29/20 12:52 3 ml ONETIME ONE Administration Sodium Chloride 1,000 mls @ 999 mls/hr 09/29/20 14:49 09/29/20 15:11 Normal Saline IV 09/29/20 15:49 999 mls/hr .BOLUS ONE Administration Potassium Chloride 40 meq 09/29/20 14:57 09/29/20 15:11 Potassium Chloride 10 Meq Tab.Er PO 09/29/20 14:58 40 meq ONETIME ONE Administration - Radiology Interpretation Free Text/Narrative:: [facility] Final Radiology Report Call: [phone] assistance Online chat: [email or web address] Name: KADIE POST Age: 59Years F Date: 09/29/2020 SSN: -- : 1960 Study: CR CHEST 1V FRONTAL Requesting Physician: Gina Contreras Images: 1 Addl Studies: Provided Clinical History: Expiratory wheezes diffuse to lobes Contrast: Contrast Medium: Contrast Amount: Contrast Method: CONFIDENTIALITY STATEMENT This report is intended only for use by the referring physician, and only in accordance with law. If you received this in error, call [phone]. Page 1 of 1 PROCEDURE INFORMATION: Exam: XR Chest Exam date and time: 09/29/2020 1:12 PM Age: 59 years old Clinical indication: Wheezing; Additional info: Expiratory wheezes diffuse to lobes TECHNIQUE: Imaging protocol: XR of the chest. Views: 1 view. COMPARISON: CR Chest 1V Frontal 06/10/2019 7:36 PM FINDINGS: Lungs: Interstitial prominence in both lungs, especially in the bases could be due to edema infiltrate. Pleural spaces: Unremarkable. No pleural effusion. No pneumothorax. Heart/Mediastinum: Unremarkable. No cardiomegaly. Vasculature: Aortic calcifications. Bones/joints: Degenerative arthritis in the shoulders. IMPRESSION: Interstitial prominence in lung bases suspicious for edema or infiltrate. Thank you for allowing us to participate in the care of your patient. Dictated and Authenticated by: Bharti Delgado MD 09/29/2020 1:39 PM Central Time ([place] & [place]) - Re-Assessments/Exams Free Text/Narrative Re-Assessment/Exam: 09/29/20 EKG NSR with no evidence of acute myocardial ischemia. BNP 30. Troponin WNL. Hgb 18.3, Hct 55.3; will administer NS 1L bolus for dehydration. No evidence of infection or anemia via CBC. Potassium slightly reduced at 3.3; will replace orally given NS bolus. Kidney function, liver function and remaining electrolytes appropriate. UA negative for UTI. ETOH negative. Tox screen positive for opiates, oxycodone, amphetamines, methamphetamines, MDMA, and Benzodiazepines. CXR remarkable for possible infiltrate; no elevation in white count and no shift. Findings of examination, lab work, and imaging reviewed with patient. When tox screen reviewed patient states she used ..only once a day ago. Discussed possibility of hallucinations related to use of the aforementioned substances and patient agreed. Red flag signs and symptoms which would warrant reevaluation reviewed. Patient verbalized understanding and agreement with the plan of care. Departure - Departure Time of Disposition: 16:27 Disposition: Home, Self-Care 01 Condition: Good Clinical Impression: Dehydration, Methamphetamine abuse, MDMA abuse, History of COPD, Oxygen dependent - Discharge Information *PRESCRIPTION DRUG MONITORING PROGRAM REVIEWED*: Not Applicable *COPY OF PRESCRIPTION DRUG MONITORING REPORT IN PATIENT [place]ANNA[place]: Not Applicable Instructions: Methamphetamines Use Disorder, Dehydration, Adult Referrals: PCP,None [Primary Care Provider] - Forms: ED Department Discharge Additional Instructions: 1.) Drink plenty of water to stay hydrated throughout the day. 2.) Continue on your previously prescribed medications. 3.) Follow up with your primary care provider regarding today's visit. 4.) Refrain from using recreational drugs. Sepsis Event Note (ED) - Evaluation Sepsis Screening Result: No Definite Risk
--- NOTE | 2020-09-29 13:39 | CR ---
PROCEDURE INFORMATION: Exam: XR Chest Exam date and time: 09/29/2020 1:12 PM Age: 59 years old Clinical indication: Wheezing; Additional info: Expiratory wheezes diffuse to lobes TECHNIQUE: Imaging protocol: XR of the chest. Views: 1 view. COMPARISON: CR Chest 1V Frontal 06/10/2019 7:36 PM FINDINGS: Lungs: Interstitial prominence in both lungs, especially in the bases could be due to edema infiltrate. Pleural spaces: Unremarkable. No pleural effusion. No pneumothorax. Heart/Mediastinum: Unremarkable. No cardiomegaly. Vasculature: Aortic calcifications. Bones/joints: Degenerative arthritis in the shoulders. IMPRESSION: Interstitial prominence in lung bases suspicious for edema or infiltrate.
[2020-09-29 13:48] LABS: PTT,PARTIAL THROMBOPLSTIN TIME 48.3 SEC (22.0-34.0)
[2020-09-29 14:04] LABS: ANION GAP 12.3 mEq/L (7-13); CHLORIDE,CL 98 mmol/L (98-107); SODIUM,NA 140 mmol/L (136-145)
[2020-09-29] MEDS ORDERED: Sodium Chloride 0.9% 1,000 ML IV ONE (14:49)
[2020-09-29] MEDS ORDERED: Potassium Chloride 10 MEQ Tab.ER PO ONE (14:57)
[2020-09-29 16:31] VITALS: BP 120/52; PULSE 81
== END 2020-09-29 17:26 | disposition home or self-care (01) ==
LOC: DL.ED 12:04
DX: E86.0 Dehydration (principal); F15.10 Other stimulant abuse, uncomplicated; J44.9 Chronic obstructive pulmonary disease, unspecified; E78.00 Pure hypercholesterolemia, unspecified; I10 Essential (primary) hypertension; E11.9 Type 2 diabetes mellitus without complications; M19.90 Unspecified osteoarthritis, unspecified site; Z79.82 Long term (current) use of aspirin; Z99.81 Dependence on supplemental oxygen; Z88.5 Allergy status to narcotic agent; Z72.0 Tobacco use; Z79.84 Long term (current) use of oral hypoglycemic drugs; Z79.899 Other long term (current) drug therapy
CPT/HCPCS: 36415; 71045; 80053; 80305-QW; 80307; 81001; 83605; 83880; 84484; 85025; 85610; 85730; 93005; 93010; 94640; 99284; 99285-25; A9270-GY; J7030; J7620-GY

== ENCOUNTER 2022-06-28 15:03 | Emergency (ER) | payer MEDICARE, OTHER ==
[2022-06-28] MEDS ORDERED: Acetaminophen/oxyCODONE 325-5 MG Tab PO ONE (15:04)
[2022-06-28 15:25] VITALS: BP 146/134; PULSE 87
[2022-06-28] MEDS ORDERED: Acetaminophen/oxyCODONE 325-5 MG Tab ONE (17:20)
== END 2022-06-28 17:46 | disposition home or self-care (01) ==
LOC: DL.ED 15:03
DX: S82.142A Displaced bicondylar fracture of left tibia, initial encounter for closed fracture (principal); S82.832A Other fracture of upper and lower end of left fibula, initial encounter for closed fracture; E78.00 Pure hypercholesterolemia, unspecified; I10 Essential (primary) hypertension; J44.9 Chronic obstructive pulmonary disease, unspecified; M19.90 Unspecified osteoarthritis, unspecified site; E11.9 Type 2 diabetes mellitus without complications; Z88.5 Allergy status to narcotic agent; Z79.82 Long term (current) use of aspirin; Z79.01 Long term (current) use of anticoagulants; Z79.84 Long term (current) use of oral hypoglycemic drugs; Z79.899 Other long term (current) drug therapy; W10.9XXA Fall (on) (from) unspecified stairs and steps, initial encounter; Y92.009 Unspecified place in unspecified non-institutional (private) residence as the place of occurrence of the external cause
CPT/HCPCS: 29505; 36415; 73562; 73590; 73700; 85610; 99283; 99284; A9270

== ENCOUNTER 2022-07-06 13:09 | Emergency (ER) | payer MEDICARE, OTHER ==
[2022-07-06] MEDS ORDERED: oxyCODONE 5 MG Tab PO ONE (13:10)
[2022-07-06 13:26] VITALS: BP 151/55; PULSE 90
[2022-07-06] MEDS ORDERED: oxyCODONE 5 MG Tab ONE (14:21)
== END 2022-07-06 14:27 | disposition home or self-care (01) ==
LOC: DL.ED 13:09
DX: S82.142D Displaced bicondylar fracture of left tibia, subsequent encounter for closed fracture with routine healing (principal); S82.832D Other fracture of upper and lower end of left fibula, subsequent encounter for closed fracture with routine healing; I10 Essential (primary) hypertension; E78.00 Pure hypercholesterolemia, unspecified; J44.9 Chronic obstructive pulmonary disease, unspecified; M19.90 Unspecified osteoarthritis, unspecified site; E11.9 Type 2 diabetes mellitus without complications; Z72.0 Tobacco use; Z88.5 Allergy status to narcotic agent; Z79.82 Long term (current) use of aspirin; Z79.01 Long term (current) use of anticoagulants; Z79.899 Other long term (current) drug therapy; Z79.84 Long term (current) use of oral hypoglycemic drugs; W10.9XXD Fall (on) (from) unspecified stairs and steps, subsequent encounter
CPT/HCPCS: 99283; 99284; A9270-GY

== ENCOUNTER 2024-10-29 18:02 | Inpatient (IN) | payer MEDICARE, MEDICAID ==
[2024-10-29] MEDS: Albuterol/Ipratropium 3.0-0.5 MG/3 ML Neb Soln NEB ONE ×2 (18:25→22:29)
[2024-10-29 18:27] LABS: BASOPHILS PERCENT AUTO 0.3 % (0.0-1.0); EOSINOPHILS PERCENT AUTO 1.8 % (1.0-3.0); HEMATOCRIT 55.6 % (37.0-47.0); HEMOGLOBIN 17.4 g/dL (12.0-16.0); LYMPHOCYTES PERCENT AUTO 26.2 % (20.5-50.1); MEAN CORPUSCULAR HEMOGLOBIN 29.3 pg (27.0-34.0); MEAN CORPUSCULAR HGB CONC 31.3 g/dL (33.0-35.0); MEAN CORPUSCULAR VOLUME 93.6 fL (80-100); MONOCYTES PERCENT AUTO 7.4 % (2-8); NEUTROPHILS PERCENT AUTO 64.3 % (42.2-75.2); PLATELET COUNT,PLT 185 10^3/uL (150-450); RED BLOOD CELL COUNT 5.94 10^6/uL (4.2-5.4); WHITE BLOOD CELL COUNT,WBC 6.2 10^3/uL (5.0-10.0)
[2024-10-29] MEDS: methylPREDNISolone Sodium Succinate 125 MG/2 ML SDV IVPUSH ONE (18:41)
[2024-10-29 18:49] LABS: A/G RATIO 0.9; ALBUMIN 3.6 g/dL (3.4-5.0); ANION GAP 10.1 mEq/L (7-13); BILIRUBIN DIRECT 0.2 mg/dL (0.0-0.2); BILIRUBIN INDIRECT 0.5; BILIRUBIN TOTAL 0.7 mg/dL (0.2-1.0); CALCIUM 9.4 mg/dL (8.5-10.1); CREATININE 0.77 mg/dL (0.55-1.02); EST CRCL DRUG DOSING (CG) 60.25 mL/min; POTASSIUM,K 4.1 mmol/L (3.5-5.1); PROTEIN TOTAL,TP 7.6 g/dL (6.4-8.2)
[2024-10-29 19:55] LABS: MAGNESIUM 1.8 mg/dL (1.8-2.4)
[2024-10-29 19:56] LABS: INR 2.6 (0.9-1.2); PROTHROMBIN TIME 25.1 SEC (9.0-12.0)
[2024-10-29 20:06] LABS: LACTIC ACID 1.3 mmol/L (0.4-2.0)
[2024-10-29] MEDS ORDERED: 50% Dextrose in Water 50 ML Syringe IVPUSH PRN ×2 (21:37→21:42)
[2024-10-29] MEDS ORDERED: Glucagon,Human Recombinant 1 MG Vial IM PRN ×2 (21:37→21:42)
[2024-10-29 22:12] LABS: INR 2.5 (0.9-1.2); PROTHROMBIN TIME 24.7 SEC (9.0-12.0)
[2024-10-29] MEDS: Azithromycin 250 MG Tab PO ONE (22:29)
[2024-10-29] MEDS: cefTRIAXone 1 GM Vial IVPUSH ONE (22:29)
[2024-10-29 22:44] LABS: O2 DELIVERY DEVICE NASAL CANNULA
[2024-10-29 22:46] LABS: BASE EXCESS ARTERIAL 6 mmol/L ((-2)-(+3)); BICARBONATE,ARTERIAL 33.6 mmol/L (22-26); O2 SATURATION ARTERIAL 91 % (95-100); PCO2 ARTERIAL 59 mmHg (35-45); PH,ARTERIAL 7.38 (7.35-7.45); PO2 ARTERIAL 63 mmHg (70-100)
[2024-10-29 22:47] LABS: ALLEN TEST POSITIVE
[2024-10-29 22:48] LABS: O2 FLOW RATE 5
[2024-10-29] MEDS: Iopamidol 755 Mg/ML 100 ML Bottle IVPUSH ONE (23:25)
[2024-10-29] MEDS: Furosemide 100 MG/10 ML SDV IVPUSH ONE (23:29)
[2024-10-29] MEDS: Nitroglycerin/D5W 25 MG/250 ML BOTTLE IV SCH (23:29)
[2024-10-29] MEDS: oxyCODONE 5 MG Tab PO ONE (23:33)
[2024-10-29] MEDS: Acetaminophen/oxyCODONE 325-5 MG Tab PO ONE (23:34)
[2024-10-29] MEDS: Aspirin 81 MG Tab.EC PO SCH (23:39)
[2024-10-29] MEDS: Nicotine 14 MG/24 Hr Patch TRDERM ONE (23:44)
[2024-10-30 06:22] LABS: BASOPHILS PERCENT AUTO 0.2 % (0.0-1.0); HEMATOCRIT 55.6 % (37.0-47.0); HEMOGLOBIN 17.3 g/dL (12.0-16.0); LYMPHOCYTES PERCENT AUTO 13.3 % (20.5-50.1); MEAN CORPUSCULAR HEMOGLOBIN 28.7 pg (27.0-34.0); MEAN CORPUSCULAR HGB CONC 31.1 g/dL (33.0-35.0); MEAN CORPUSCULAR VOLUME 92.4 fL (80-100); MONOCYTES PERCENT AUTO 2.6 % (2-8); NEUTROPHILS PERCENT AUTO 83.9 % (42.2-75.2); PLATELET COUNT,PLT 187 10^3/uL (150-450); RED BLOOD CELL COUNT 6.02 10^6/uL (4.2-5.4)
[2024-10-30 06:40] LABS: ANION GAP 8.8 mEq/L (7-13); CREATININE 0.88 mg/dL (0.55-1.02); EST CRCL DRUG DOSING (CG) 50.41 mL/min; MAGNESIUM 1.9 mg/dL (1.8-2.4); POTASSIUM,K 3.8 mmol/L (3.5-5.1)
[2024-10-30] MEDS: Albuterol/Ipratropium 3.0-0.5 MG/3 ML Neb Soln NEB PRN (06:47)
[2024-10-30] MEDS ORDERED: Isosorbide Mononitrate 60 MG Tab.ER PO SCH (08:15)
[2024-10-30] MEDS: Lisinopril 5 MG Tab PO SCH (08:53)
[2024-10-30] MEDS: oxyCODONE 5 MG Tab PO SCH (08:53)
[2024-10-30] MEDS: Furosemide 80 MG Tab PO SCH (08:54)
[2024-10-30] MEDS: Insulin Glarg,Human.Rec.Analog 100 Unit/ML 10 ML Vial SUBCUT SCH (08:55)
[2024-10-30] MEDS: Acetaminophen/oxyCODONE 325-5 MG Tab PO SCH (08:55)
[2024-10-30] MEDS: Insulin Lispro 100 Units/ML 3 ML Vial SUBCUT SCH (08:56)
[2024-10-30] MEDS: Nicotine 7 MG/24 Hr Patch TRDERM SCH (08:59)
[2024-10-30] MEDS: Formoterol/Mometasone 200-5 MCG 8.8 GM Inhaler INH SCH ×2 (09:45→17:11)
[2024-10-30] MEDS: Tiotropium Bromide 4 GM Inhalation Spray (2.5mcg/1 dose; 10 doses) INH SCH (09:45)
[2024-10-30 10:02] LABS: CORONAVIRUS COVID-19 NAA NEGATIVE (NEGATIVE)
[2024-10-30] MEDS: hydrALAZINE 20 MG/ML SDV IVPUSH PRN (11:31)
[2024-10-30] MEDS: Warfarin 2.5 MG Tab PO SCH (13:11)
[2024-10-30] MEDS: hydrALAZINE 25 MG Tab PO SCH (17:19)
[2024-10-30] MEDS ORDERED: Insulin Glarg,Human.Rec.Analog 100 Unit/ML 10 ML Vial SUBCUT SCH (21:00)
[2024-10-30] MEDS: Rosuvastatin 10 MG Tab PO SCH (21:19)
[2024-10-30] MEDS: Gabapentin 300 MG Cap PO SCH (21:49)
[2024-10-31 06:39] LABS: BASOPHILS PERCENT AUTO 0.2 % (0.0-1.0); EOSINOPHILS PERCENT AUTO 0.5 % (1.0-3.0); HEMATOCRIT 56.6 % (37.0-47.0); LYMPHOCYTES PERCENT AUTO 17.3 % (20.5-50.1); MEAN CORPUSCULAR HEMOGLOBIN 29.3 pg (27.0-34.0); MEAN CORPUSCULAR HGB CONC 31.8 g/dL (33.0-35.0); MEAN CORPUSCULAR VOLUME 92.2 fL (80-100); MONOCYTES PERCENT AUTO 9.7 % (2-8); NEUTROPHILS PERCENT AUTO 72.3 % (42.2-75.2); PLATELET COUNT,PLT 203 10^3/uL (150-450); RED BLOOD CELL COUNT 6.14 10^6/uL (4.2-5.4); WHITE BLOOD CELL COUNT,WBC 9.9 10^3/uL (5.0-10.0)
[2024-10-31 06:51] LABS: ANION GAP 8.3 mEq/L (7-13); CALCIUM 9.3 mg/dL (8.5-10.1); CREATININE 1.06 mg/dL (0.55-1.02); EST CRCL DRUG DOSING (CG) 41.85 mL/min; POTASSIUM,K 3.3 mmol/L (3.5-5.1)
[2024-10-31] MEDS: Potassium Chloride 10 MEQ Tab.ER PO SCH (08:29)
[2024-10-31] MEDS: Potassium Chloride 10 MEQ Tab.ER PO ONE (09:25)
[2024-10-31 13:56] LABS: INFLUENZA A NAA NEGATIVE (NEGATIVE); INFLUENZA B NAA NEGATIVE (NEGATIVE)
[2024-10-31] MEDS: Mupirocin Oint 22 GM Tube TOP SCH (14:37)
[2024-10-31] MEDS: Acetaminophen 325 MG Tab PO PRN (19:13)
[2024-10-31] MEDS: Doxycycline Monohydrate 100 MG Cap PO ONE (22:31)
[2024-11-01 06:54] LABS: BASOPHILS PERCENT AUTO 0.1 % (0.0-1.0); EOSINOPHILS PERCENT AUTO 0.8 % (1.0-3.0); HEMATOCRIT 55.2 % (37.0-47.0); HEMOGLOBIN 16.9 g/dL (12.0-16.0); LYMPHOCYTES PERCENT AUTO 17.5 % (20.5-50.1); MEAN CORPUSCULAR HGB CONC 30.6 g/dL (33.0-35.0); MEAN CORPUSCULAR VOLUME 94.7 fL (80-100); NEUTROPHILS PERCENT AUTO 72.6 % (42.2-75.2); PLATELET COUNT,PLT 181 10^3/uL (150-450); RED BLOOD CELL COUNT 5.83 10^6/uL (4.2-5.4); WHITE BLOOD CELL COUNT,WBC 10.8 10^3/uL (5.0-10.0)
[2024-11-01 07:26] LABS: ANION GAP 6.8 mEq/L (7-13); BILIRUBIN TOTAL 0.7 mg/dL (0.2-1.0); BUN/CREATININE RATIO 21.4 (No establ ref range); CALCIUM 8.7 mg/dL (8.5-10.1); CREATININE 0.84 mg/dL (0.55-1.02); EST CRCL DRUG DOSING (CG) 52.81 mL/min; MAGNESIUM 1.8 mg/dL (1.8-2.4); POTASSIUM,K 3.8 mmol/L (3.5-5.1); PROTEIN TOTAL,TP 6.4 g/dL (6.4-8.2)
[2024-11-01 07:31] LABS: A/G RATIO 0.88
[2024-11-01] MEDS: Doxycycline Monohydrate 100 MG Cap PO SCH (08:33)
[2024-11-01] MEDS: cefTRIAXone 1 GM Vial IVPUSH SCH (08:35)
[2024-11-01 09:16] LABS: INR 3.6 (0.9-1.2); PROTHROMBIN TIME 34.2 SEC (9.0-12.0)
[2024-11-01] MEDS: amLODIPine 5 MG Tab PO SCH (17:09)
[2024-11-01] MEDS: Warfarin 2 MG Tab PO ONE (20:47)
[2024-11-02 06:52] LABS: BASOPHILS PERCENT AUTO 0.1 % (0.0-1.0); EOSINOPHILS PERCENT AUTO 1.1 % (1.0-3.0); HEMATOCRIT 54.4 % (37.0-47.0); LYMPHOCYTES PERCENT AUTO 17.4 % (20.5-50.1); MEAN CORPUSCULAR HEMOGLOBIN 28.9 pg (27.0-34.0); MEAN CORPUSCULAR HGB CONC 31.3 g/dL (33.0-35.0); MEAN CORPUSCULAR VOLUME 92.5 fL (80-100); MONOCYTES PERCENT AUTO 8.3 % (2-8); NEUTROPHILS PERCENT AUTO 73.1 % (42.2-75.2); PLATELET COUNT,PLT 174 10^3/uL (150-450); RED BLOOD CELL COUNT 5.88 10^6/uL (4.2-5.4); WHITE BLOOD CELL COUNT,WBC 10.3 10^3/uL (5.0-10.0)
[2024-11-02 07:03] LABS: ALANINE AMINOTRANSFERASE,ALT 15 U/L (14-59); ALKALINE PHOSPHATASE 58 U/L (46-116); BILIRUBIN TOTAL 0.6 mg/dL (0.2-1.0); BLOOD UREA NITROGEN,BUN 21 mg/dL (7-18); BUN/CREATININE RATIO 23.6 (No establ ref range); CALCIUM 8.9 mg/dL (8.5-10.1); CARBON DIOXIDE,CO2 38 mmol/L (21-32); CHLORIDE,CL 98 mmol/L (98-107); CREATININE 0.89 mg/dL (0.55-1.02); EST CRCL DRUG DOSING (CG) 49.84 mL/min; GLUCOSE RANDOM 133 mg/dL (70-99); MAGNESIUM 1.9 mg/dL (1.8-2.4); PROTEIN TOTAL,TP 6.8 g/dL (6.4-8.2); SODIUM,NA 140 mmol/L (136-145)
[2024-11-02 07:06] LABS: A/G RATIO 0.79; ASPARTATE AMNIOTRANSFERASE,AST < 5 U/L (15-37); ESTIMATED GFR 72 mL/min (>=60)
[2024-11-02] MEDS: methylPREDNISolone Sodium Succinate 125 MG/2 ML SDV IVPUSH SCH (08:37)
[2024-11-02] MEDS: Losartan 50 MG Tab PO SCH (08:52)
[2024-11-02] MEDS: Albuterol/Ipratropium 3.0-0.5 MG/3 ML Neb Soln NEB SCH (12:36)
[2024-11-02] MEDS ORDERED: Sennosides/Docusate Sodium 50-8.6 MG Tab PO PRN (12:57)
[2024-11-02] MEDS: Bisacodyl 5 MG Tab PO ONE (13:59)
[2024-11-02] MEDS: Polyethylene Glycol 3350 Powder 17 GM Packet PO SCH (13:59)
[2024-11-02] MEDS: Docusate Sodium 100 MG Cap PO SCH (14:02)
[2024-11-02] MEDS: Simethicone 80 MG Tab.Chew PO SCH (14:02)
[2024-11-02] MEDS ORDERED: Sodium Chloride 0.9% 10 ML Syringe FLUSH PRN (23:26)
[2024-11-03 06:28] LABS: BASOPHILS PERCENT AUTO 0.1 % (0.0-1.0); HEMOGLOBIN 17.9 g/dL (12.0-16.0); LYMPHOCYTES PERCENT AUTO 5.9 % (20.5-50.1); MEAN CORPUSCULAR HEMOGLOBIN 28.5 pg (27.0-34.0); MEAN CORPUSCULAR HGB CONC 31.4 g/dL (33.0-35.0); MEAN CORPUSCULAR VOLUME 90.8 fL (80-100); MONOCYTES PERCENT AUTO 1.7 % (2-8); NEUTROPHILS PERCENT AUTO 92.3 % (42.2-75.2); PLATELET COUNT,PLT 212 10^3/uL (150-450); RED BLOOD CELL COUNT 6.28 10^6/uL (4.2-5.4); WHITE BLOOD CELL COUNT,WBC 12.7 10^3/uL (5.0-10.0)
[2024-11-03 06:50] LABS: INR 2.9 (0.9-1.2); PROTHROMBIN TIME 28.5 SEC (9.0-12.0)
[2024-11-03 06:56] LABS: ALBUMIN 3.2 g/dL (3.4-5.0); ANION GAP 10.5 mEq/L (7-13); BILIRUBIN TOTAL 0.6 mg/dL (0.2-1.0); BUN/CREATININE RATIO 27.3 (No establ ref range); CALCIUM 9.8 mg/dL (8.5-10.1); CREATININE 1.28 mg/dL (0.55-1.02); EST CRCL DRUG DOSING (CG) 34.66 mL/min; MAGNESIUM 1.8 mg/dL (1.8-2.4); POTASSIUM,K 4.5 mmol/L (3.5-5.1); PROTEIN TOTAL,TP 7.3 g/dL (6.4-8.2)
[2024-11-03 06:57] LABS: A/G RATIO 0.78
[2024-11-03] MEDS ORDERED: Furosemide 80 MG Tab PO SCH (09:00)
[2024-11-03] MEDS ORDERED: Bisacodyl 5 MG Tab PO PRN (09:00)
[2024-11-03] MEDS: Ondansetron 4 MG/2 ML SDV IVPUSH PRN (09:09)
[2024-11-03] MEDS: Spironolactone 25 MG Tab PO SCH (09:29)
[2024-11-03] MEDS: Ondansetron 4 MG/2 ML SDV ONE (10:55)
[2024-11-03] MEDS: Ascorbic Acid 500 MG Tab PO SCH (12:47)
[2024-11-03] MEDS: Warfarin** 1 MG TABLET PO ONE (21:52)
[2024-11-04] MEDS: Topiramate 25 MG Tab PO SCH (00:29)
[2024-11-04 06:39] LABS: BASOPHILS PERCENT AUTO 0.1 % (0.0-1.0); HEMATOCRIT 55.3 % (37.0-47.0); HEMOGLOBIN 17.3 g/dL (12.0-16.0); LYMPHOCYTES PERCENT AUTO 4.1 % (20.5-50.1); MEAN CORPUSCULAR HEMOGLOBIN 28.5 pg (27.0-34.0); MEAN CORPUSCULAR HGB CONC 31.3 g/dL (33.0-35.0); MONOCYTES PERCENT AUTO 4.6 % (2-8); NEUTROPHILS PERCENT AUTO 91.2 % (42.2-75.2); PLATELET COUNT,PLT 186 10^3/uL (150-450); RED BLOOD CELL COUNT 6.08 10^6/uL (4.2-5.4); WHITE BLOOD CELL COUNT,WBC 16.7 10^3/uL (5.0-10.0)
[2024-11-04 06:57] LABS: INR 3.3 (0.9-1.2); PROTHROMBIN TIME 31.7 SEC (9.0-12.0)
[2024-11-04 07:13] LABS: ANION GAP 8.1 mEq/L (7-13); BILIRUBIN TOTAL 0.4 mg/dL (0.2-1.0); BUN/CREATININE RATIO 33.8 (No establ ref range); CALCIUM 9.8 mg/dL (8.5-10.1); CREATININE 1.3 mg/dL (0.55-1.02); EST CRCL DRUG DOSING (CG) 34.12 mL/min; MAGNESIUM 2.1 mg/dL (1.8-2.4); POTASSIUM,K 5.1 mmol/L (3.5-5.1); PROTEIN TOTAL,TP 6.7 g/dL (6.4-8.2)
[2024-11-04 07:14] LABS: A/G RATIO 0.81
[2024-11-04] MEDS: Gabapentin 400 MG Cap PO SCH (08:01)
[2024-11-04] MEDS: Pantoprazole 40 MG Vial IVPUSH SCH (08:01)
[2024-11-04] MEDS: predniSONE 20 MG Tab PO SCH (08:02)
[2024-11-04] MEDS: Insulin Lispro 100 Units/ML 3 ML Vial SUBCUT ONE (08:02)
[2024-11-04] MEDS: Sodium Chloride 0.9% 1,000 ML IV SCH (08:20)
[2024-11-04] MEDS ORDERED: VANCOmycin 1.25 GM in Sodium Chloride 0.9% 250 ML IV SCH (21:15)
[2024-11-04] MEDS: Warfarin** 1 MG TABLET PO ONE (22:02)
[2024-11-04] MEDS: Cefepime 2 GM Vial IVPUSH SCH (22:14)
[2024-11-04] MEDS: VANCOmycin 1.25 GM in Sodium Chloride 0.9% 250 ML IV SCH (22:21)
[2024-11-05 06:12] LABS: BASOPHILS PERCENT AUTO 0.1 % (0.0-1.0); HEMATOCRIT 53.5 % (37.0-47.0); HEMOGLOBIN 16.9 g/dL (12.0-16.0); LYMPHOCYTES PERCENT AUTO 11.5 % (20.5-50.1); MEAN CORPUSCULAR HEMOGLOBIN 29.1 pg (27.0-34.0); MEAN CORPUSCULAR HGB CONC 31.6 g/dL (33.0-35.0); MEAN CORPUSCULAR VOLUME 92.1 fL (80-100); MONOCYTES PERCENT AUTO 10.8 % (2-8); NEUTROPHILS PERCENT AUTO 77.6 % (42.2-75.2); PLATELET COUNT,PLT 184 10^3/uL (150-450); RED BLOOD CELL COUNT 5.81 10^6/uL (4.2-5.4); WHITE BLOOD CELL COUNT,WBC 13.7 10^3/uL (5.0-10.0)
[2024-11-05 06:42] LABS: INR 3.1 (0.9-1.2); PROTHROMBIN TIME 30.1 SEC (9.0-12.0)
[2024-11-05 06:43] LABS: ALBUMIN 2.7 g/dL (3.4-5.0); ANION GAP 9.7 mEq/L (7-13); BILIRUBIN TOTAL 0.4 mg/dL (0.2-1.0); BUN/CREATININE RATIO 36.6 (No establ ref range); CREATININE 1.01 mg/dL (0.55-1.02); EST CRCL DRUG DOSING (CG) 43.92 mL/min; MAGNESIUM 2.1 mg/dL (1.8-2.4); POTASSIUM,K 4.7 mmol/L (3.5-5.1); PROTEIN TOTAL,TP 6.1 g/dL (6.4-8.2)
[2024-11-05 06:48] LABS: A/G RATIO 0.79
[2024-11-05] MEDS: guaiFENesin 600 MG Tab.ER PO SCH (09:05)
[2024-11-05] MEDS: Albuterol 6.7 GM Inhaler **OWN MED INH SCH (19:25)
[2024-11-05] MEDS: Warfarin** 1 MG TABLET PO ONE (21:05)
[2024-11-06 06:32] LABS: BASOPHILS PERCENT AUTO 0.1 % (0.0-1.0); EOSINOPHILS PERCENT AUTO 0.1 % (1.0-3.0); HEMATOCRIT 53.3 % (37.0-47.0); HEMOGLOBIN 17.1 g/dL (12.0-16.0); LYMPHOCYTES PERCENT AUTO 16.2 % (20.5-50.1); MEAN CORPUSCULAR HGB CONC 32.1 g/dL (33.0-35.0); MEAN CORPUSCULAR VOLUME 90.5 fL (80-100); MONOCYTES PERCENT AUTO 13.2 % (2-8); NEUTROPHILS PERCENT AUTO 70.4 % (42.2-75.2); PLATELET COUNT,PLT 176 10^3/uL (150-450); RED BLOOD CELL COUNT 5.89 10^6/uL (4.2-5.4); WHITE BLOOD CELL COUNT,WBC 9.9 10^3/uL (5.0-10.0)
[2024-11-06 06:46] LABS: INR 2.5 (0.9-1.2); PROTHROMBIN TIME 24.2 SEC (9.0-12.0)
[2024-11-06 06:56] LABS: ANION GAP 7.3 mEq/L (7-13); BILIRUBIN TOTAL 0.5 mg/dL (0.2-1.0); BUN/CREATININE RATIO 27.3 (No establ ref range); CREATININE 0.99 mg/dL (0.55-1.02); EST CRCL DRUG DOSING (CG) 44.81 mL/min; MAGNESIUM 2.1 mg/dL (1.8-2.4); POTASSIUM,K 4.3 mmol/L (3.5-5.1); PROTEIN TOTAL,TP 6.3 g/dL (6.4-8.2)
[2024-11-06 06:57] LABS: A/G RATIO 0.91
[2024-11-06] MEDS ORDERED: Docusate Sodium 100 MG Cap PO PRN (07:12)
[2024-11-06] MEDS ORDERED: Polyethylene Glycol 3350 Powder 17 GM Packet PO PRN (07:13)
[2024-11-06] MEDS: Warfarin 2 MG Tab PO ONE (21:36)
[2024-11-07 06:40] LABS: BASOPHILS PERCENT AUTO 0.1 % (0.0-1.0); EOSINOPHILS PERCENT AUTO 0.6 % (1.0-3.0); HEMATOCRIT 50.6 % (37.0-47.0); HEMOGLOBIN 15.9 g/dL (12.0-16.0); LYMPHOCYTES PERCENT AUTO 23.6 % (20.5-50.1); MEAN CORPUSCULAR HEMOGLOBIN 28.6 pg (27.0-34.0); MEAN CORPUSCULAR HGB CONC 31.4 g/dL (33.0-35.0); MEAN CORPUSCULAR VOLUME 91.2 fL (80-100); MONOCYTES PERCENT AUTO 13.4 % (2-8); NEUTROPHILS PERCENT AUTO 62.3 % (42.2-75.2); PLATELET COUNT,PLT 156 10^3/uL (150-450); RED BLOOD CELL COUNT 5.55 10^6/uL (4.2-5.4); WHITE BLOOD CELL COUNT,WBC 8.1 10^3/uL (5.0-10.0)
[2024-11-07 07:27] LABS: ALBUMIN 2.8 g/dL (3.4-5.0); ANION GAP 6.2 mEq/L (7-13); BILIRUBIN TOTAL 0.4 mg/dL (0.2-1.0); BUN/CREATININE RATIO 27.2 (No establ ref range); CALCIUM 8.8 mg/dL (8.5-10.1); CREATININE 0.81 mg/dL (0.55-1.02); EST CRCL DRUG DOSING (CG) 54.76 mL/min; POTASSIUM,K 4.2 mmol/L (3.5-5.1); PROTEIN TOTAL,TP 5.8 g/dL (6.4-8.2)
[2024-11-07 07:28] LABS: INR 1.7 (0.9-1.2); PROTHROMBIN TIME 16.9 SEC (9.0-12.0)
[2024-11-07 07:29] LABS: A/G RATIO 0.93
[2024-11-07 11:36] VITALS: BP 136/76; PULSE 82
[2024-11-07] MEDS: Chlorthalidone 25 MG Tab PO ONE (12:29)
[2024-11-07] MEDS ORDERED: Gabapentin 400 MG Cap PO SCH (21:00)
[2024-11-07] MEDS ORDERED: Warfarin 2 MG Tab PO ONE (21:00)
[2024-11-07] MEDS ORDERED: VANCOmycin 1.5 GM/300 ML 300 ML IV SCH (22:00)
== END 2024-11-07 12:37 | disposition home or self-care (01) | DRG 193 ==
LOC: DL.ED 18:02 → DL.MS 20:42
PROVIDERS: ADMIT Internal Medicine; ATTEND Student in an Organized Health Care Education/Training Program
PROC: 4A033R1 Measurement of Arterial Saturation, Peripheral, Percutaneous Approach (ICD-10-PCS; principal; 2024-10-29)
DX: J18.9 Pneumonia, unspecified organism (principal); J96.21 Acute and chronic respiratory failure with hypoxia; I10 Essential (primary) hypertension; J44.0 Chronic obstructive pulmonary disease with (acute) lower respiratory infection; J44.1 Chronic obstructive pulmonary disease with (acute) exacerbation; N17.9 Acute kidney failure, unspecified; Z68.39 Body mass index [BMI] 39.0-39.9, adult; Z88.5 Allergy status to narcotic agent; H91.90 Unspecified hearing loss, unspecified ear; E78.00 Pure hypercholesterolemia, unspecified; Z79.51 Long term (current) use of inhaled steroids; M19.90 Unspecified osteoarthritis, unspecified site; E11.9 Type 2 diabetes mellitus without complications; E66.9 Obesity, unspecified; I48.91 Unspecified atrial fibrillation; D64.9 Anemia, unspecified; E87.6 Hypokalemia; I16.0 Hypertensive urgency; Z88.8 Allergy status to other drugs, medicaments and biological substances; Z79.01 Long term (current) use of anticoagulants; Z90.710 Acquired absence of both cervix and uterus; Z79.82 Long term (current) use of aspirin; Z99.81 Dependence on supplemental oxygen; Z98.890 Other specified postprocedural states; Z79.84 Long term (current) use of oral hypoglycemic drugs; Z72.0 Tobacco use; Z79.899 Other long term (current) drug therapy
CPT/HCPCS: 0240U; 36415; 36600; 51702; 71045; 71046; 71275; 80048; 80053; 80076; 82803; 82947; 83605; 83735; 83880; 84100; 84484; 85025; 85610; 87040; 87070; 87205; 93005; 94640; 94667; 94668; 96374; 97161; 97165; 99285; 99232; 99233; 99238; A9270-GY; J0360; J0692; J0696; J1815-GY; J1938; J2305; J2405; J2470; J2919; J3371; J7030; J7050; J7512; Q9967; U0002

== ENCOUNTER 2024-12-02 18:09 | Emergency (ER) | payer MEDICARE, MEDICAID ==
[2024-12-02 19:19] VITALS: BP 127/70; PULSE 74
== END 2024-12-02 20:16 | disposition home or self-care (01) ==
LOC: DL.ED 18:09
DX: G57.02 Lesion of sciatic nerve, left lower limb (principal); E11.9 Type 2 diabetes mellitus without complications; I10 Essential (primary) hypertension; E78.00 Pure hypercholesterolemia, unspecified; Z88.5 Allergy status to narcotic agent; Z88.8 Allergy status to other drugs, medicaments and biological substances; Z79.899 Other long term (current) drug therapy; Z79.4 Long term (current) use of insulin; Z90.710 Acquired absence of both cervix and uterus
CPT/HCPCS: 73501; 99283; A9270